=== PATIENT | female | born 1980 | race Caucasian/White ===

== ENCOUNTER 2016-10-08 07:53 | Outpatient (CLI) ==
[2013-08-03 20:06] VITALS: BMI 33.8
[2016-10-08 08:16] LABS: HEMATOCRIT 39.7 % (37.0-47.0); HEMOGLOBIN 12.9 g/dl (12.0-16.0); MEAN CORPUSCULAR HEMOGLOBIN 28.1 pg (27.0-31.0); MEAN CORPUSCULAR HGB CONC 32.5 (31.8-35.4); MEAN CORPUSCULAR VOLUME 86.5 fl (81.0-99.0); RED BLOOD COUNT 4.59 10^6/ul (4.20-5.40); WHITE BLOOD COUNT 9.77 K/ul (4.6-10.2)
[2016-10-08 08:55] LABS: ALBUMIN 3.6 g/dL (3.4-5.0); ALBUMIN/GLOBULIN RATIO 1.03; BILIRUBIN,TOTAL 0.38 mg/dL (0.00-1.20); BUN/CREATININE RATIO 10.95; CALCIUM 9.3 mg/dL (8.2-10.2); CHOL/HDL RATIO 3.9 (4.5-5.5); CREATININE 0.73 mg/dL (0.60-1.30); TOTAL PROTEIN 7.1 g/dL (6.4-8.2)
== END 2016-10-08 07:54 | disposition home or self-care (01) ==
LOC: LAB 07:53
PROVIDERS: ATTEND Family Medicine
DX: E11.9 Type 2 diabetes mellitus without complications (principal); E28.2 Polycystic ovarian syndrome; E78.5 Hyperlipidemia, unspecified; I10 Essential (primary) hypertension; Z09 Encounter for follow-up examination after completed treatment for conditions other than malignant neoplasm; Z13.9 Encounter for screening, unspecified; Z23 Encounter for immunization; Z68.31 Body mass index [BMI] 31.0-31.9, adult
CPT/HCPCS: 36415; 80053; 80061; 84443; 85027

== ENCOUNTER 2016-11-23 13:40 | Outpatient (CLI) | payer OTHER ==
[2013-08-03 20:06] VITALS: BMI 33.8
--- NOTE | 2016-11-25 08:19 | MAMMO ---
EXAM: Bilateral digital screening mammogram (2-D and 3-D) Comparison: Bilateral mammogram 11/27/2014 Findings: MLO and CC views of bilateral breasts demonstrate scattered fibroglandular breast parenchy ma. CAD was reviewed by the radiologist. Tomosynthesis was performed. Stable benign bilateral dwight st calcifications. There are no dominant masses, no suspicious microcalcifications and no architectu ral distortions Impression: Benign stable mammogram. Recommend followup routine screening mammography and 1 year. BIRADS 2
== END 2016-11-23 13:41 | disposition home or self-care (01) ==
LOC: RAD 13:40
PROVIDERS: ATTEND Obstetrics & Gynecology
DX: Z12.31 Encounter for screening mammogram for malignant neoplasm of breast (principal)
CPT/HCPCS: 77067

== ENCOUNTER 2017-08-06 08:25 | Outpatient (CLI) ==
[2013-08-03 20:06] VITALS: BMI 33.8
== END 2017-08-06 08:26 | disposition home or self-care (01) ==
LOC: LAB 08:25
PROVIDERS: ATTEND Family Medicine
DX: R01.1 Cardiac murmur, unspecified (principal); I10 Essential (primary) hypertension; R50.81 Fever presenting with conditions classified elsewhere; E78.5 Hyperlipidemia, unspecified; M79.1 Myalgia; E28.2 Polycystic ovarian syndrome; G93.3 Postviral and related fatigue syndromes; E78.00 Pure hypercholesterolemia, unspecified; E11.9 Type 2 diabetes mellitus without complications
CPT/HCPCS: 36415; 80053; 80061; 84443; 85025

== ENCOUNTER 2017-12-02 09:44 | Outpatient (CLI) | payer OTHER ==
[2013-08-03 20:06] VITALS: BMI 33.8
--- NOTE | 2017-12-03 10:16 | MAMMO ---
EXAM: Bilateral digital screening mammogram (2-D and 3-D) History: Screening Comparison: Bilateral mammogram 11/23/2016 Findings: MLO and CC views of bilateral breasts demonstrate scattered fibroglandular breast parenchy ma. CAD was reviewed by the radiologist. Tomosynthesis was performed. There are no dominant masses , no suspicious microcalcifications and no architectural distortions. Stable benign bilateral breast calcifications. Impression: Benign stable mammogram. Recommend followup routine screening mammography in 1 year. BIRADS 2
== END 2017-12-02 09:45 | disposition home or self-care (01) ==
LOC: RAD 09:44
PROVIDERS: ATTEND Nurse Practitioner Women's Health
DX: Z12.31 Encounter for screening mammogram for malignant neoplasm of breast (principal)
CPT/HCPCS: 77067

== ENCOUNTER 2018-03-23 12:44 | Emergency (ER) | payer OTHER ==
[2018-03-23 12:44] VITALS: BMI 33.8
[2018-03-23 12:51] VITALS: BP 128/71; TEMP 98.5
--- NOTE | 2018-03-23 14:09 | DI ---
EXAM: Chest two views HISTORY: Cough COMPARISON: None TECHNIQUE: Two views of the chest were performed FINDINGS: The lungs are clear. There is no pleural effusion or pneumothorax. The heart is normal i n size. The mediastinal contour is normal. There are no acute abnormalities of the bones. IMPRESSION: No acute cardiopulmonary process.
--- NOTE | 2018-03-23 14:11 | ED.PDOC ---
General ED Provider: Dr. JOSE PUTNAM Chief Complaint: Dizziness Stated Complaint: dizziness sudden today which is better if pt closes her eyes no pain or discomfort no focal or diffuse neurological signs Time Seen by Physician: 12:45 Mode of Arrival: Walk-In Information Source: Patient Exam Limitations: No limitations Primary Care Provider: CASPER NEAL Nursing and Triage Documentation Reviewed and Agree: Yes Does patient meet sepsis criteria?: No If yes, has appropriate treatment been initiated?: No System Inflammatory Response Syndrome: Not Applicable Sepsis Protocol: For patient's 13 years and over: Temp is 96.8 and below OR 101 and greater Pulse >90 BPM Resp >20/minute Acutely Altered Mental Status Are patient's symptoms suggestive of a new infection, such as: -Pneumonia -Skin, Soft Tissue -Endocarditis -UTI -Bone, Joint Infection -Implantable Device -Acute Abdominal Infection -Wound Infection -Meningitis -Blood Stream Catheter Infection -Unknown Neurological Complaint Exam - Dizziness Complaint/Exam Last Known Well: today Onset: Sudden Duration: today Symptoms Are: Still present Timing: Intermittent Episodes Lasting: Minutes Initial Severity: Mild Current Severity: Mild Character: Reports: Lightheaded, Weak, Dizzy Aggravating: Reports: None Alleviating: Reports: Closing eyes Associated Signs and Symptoms: Reports: Nausea. Denies: Vomiting, Diaphoresis, Tinnitus, Chest pain, Short of air, Palpitations, Unsteady gait, GI blood loss, Visual changes, Decreased oral intake, Change in medication, Change in diet, OTC meds, Loss of balance Cardiac Risk Factors: Reports: Hypertension, Diabetes (on metformin) CVA Risk Factors: Reports: Hypertension Related Surgical History: Reports: None JVD Present: No Carotid Bruit Present: No Nystagmus Present: No Gag Reflex Present: Yes Meningeal Signs Positive: No Focal Weakness: Present: None Focal Sensory Loss: Present: None Gait: Normal Romberg Test Positive: No Babinski Sign: Negative Right, Negative Left Heel to Toe Normal: Yes Differential Diagnoses: Dysrhythmia, Hypovolemia, Metabolic abnormalities, Vasovagal reaction (viral syndrome ) Quality Indicators for Cardiac Chest Pain: EKG in 10min. Quality Indicators for AMI: EKG in 10min. Quality Indicator For Non-Traumatic Chest Pain/Syncope: EKG Performed Review of Systems - Review Of Systems Constitutional: Reports: Malaise Eyes: Reports: No symptoms Ears, Nose, Mouth, Throat: Reports: No symptoms Respiratory: Reports: No symptoms Cardiac: Reports: No symptoms GI: Reports: No symptoms : Reports: No symptoms Musculoskeletal: Reports: No symptoms Skin: Reports: No symptoms Neurological: Reports: Other (dizzy) Endocrine: Reports: No symptoms Hematologic/Lymphatic: Reports: No symptoms All Other Systems: Reviewed and Negative Past Medical History - Past Medical History Previously Healthy: Yes Endocrine: Reports: DM 2 Cardiovascular: Reports: Hypertension Respiratory: Reports: None Hematological: Reports: None Gastrointestinal: Reports: None Genitourinary: Reports: None Neuro/Psych: Reports: None Musculoskeletal: Reports: None Cancer: Reports: None Last Menstrual Period: 2 weeks ago - Surgical History General Surgical History: Reports: None - Family History Family History: Reports: None - Social History Smoking Status: Never smoker Hx Substance Use: No Alcohol Screening: None Physical Exam - Physical Exam Appearance: Well-appearing, No pain distress, Well-nourished Eyes: HILLARY, EOMI, Conjunctiva clear ENT: Ears normal, Nose normal, Oropharynx normal Respiratory: Airway patent, Breath sounds clear, Breath sounds equal, Respirations nonlabored Cardiovascular: RRR, Pulses normal, No rub, No murmur GI/: Soft, Nontender, No masses, Bowel sounds normal, No Organomegaly Musculoskeletal: Normal strength, ROM intact, No edema, No calf tenderness Skin: Warm, Dry, Normal color Neurological: Sensation intact, Motor intact, Reflexes intact, Cranial nerves intact, Alert, Oriented Psychiatric: Affect appropriate, Mood appropriate - NIH Stroke Scale 1a. Level of Consciousness: 0=Alert and keenly responsive 1b. Level of Consciousness Questions: 0=Answers correctly to two questions 1c. Level of Consciousness Commands: 0=Performs two tasks correctly 2. Best Gaze: 0=Normal 3. Visual: 0=No visual loss 4. Facial Palsy: 0=Normal 5a. Motor Left Arm: 0=No drift,arm holds 90 degrees for 10 sec., leg 30 degrees for 5 sec. 5b. Motor Right Arm: 0=No drift,arm holds 90 degrees for 10 sec., leg 30 degrees for 5 sec. 6a. Motor Left Le=No drift,arm holds 90 degrees for 10 sec., leg 30 degrees for 5 sec. 6b. Motor Right Le=No drift,arm holds 90 degrees for 10 sec., leg 30 degrees for 5 sec. 7. Limb Ataxia: 0=Absent 8. Sensory: 0=Normal 9. Best Language: 0=No aphasia 10. Dysarthria: 0=Normal 11. Extincion and Inattention: 0=Normal Stroke Scale Total: 0 Re-Evaluation - Re-Evaluation Time of Re-Evaluation: 14:12 Status: Improved Vital Signs Stable: Yes Pain Level: 0 Appearance: NAD Lungs: Clear Skin: Warm and Dry Neuro: Alert and Oriented X3 CV: RRR - Re-Evaluation Time of Re-Evaluation: 14:48 Status: Improved Vital Signs Stable: Yes Pain Level: 0 Appearance: NAD Skin: Warm and Dry Neuro: Alert and Oriented X3 CV: RRR Critical Care Note - Critical Care Note Total Time (mins): 0 Course - Course Hematology/Chemistry: 03/23/18 13:10 03/23/18 13:10 Orders, Labs, Meds: Lab Review 03/23/18 03/23/18 03/23/18 12:55 13:10 13:10 WBC 16.76 H RBC 5.09 Hgb 15.0 Hct 45.9 MCV 90.2 MCH 29.5 MCHC 32.7 RDW Coeff of Rut 12.6 Plt Count 418 Immature Gran % (Auto) 0.5 Neut % (Auto) 89.7 Lymph % (Auto) 5.3 L [place] % (Auto) 3.3 Eos % (Auto) 0.9 Baso % (Auto) 0.3 Immature Gran # (Auto) 0.1 Neut # (Auto) 15.0 H Lymph # (Auto) 0.9 [place] # (Auto) 0.6 Eos # (Auto) 0.2 Baso # (Auto) 0.1 Sodium 137.6 Potassium 4.43 Chloride 102.7 Carbon Dioxide 22.4 Anion Gap 16.93 BUN 12.4 Creatinine 0.56 L Estimated GFR (MDRD) 121.00 BUN/Creatinine Ratio 22.14 Glucose 160.5 H Lactic Acid Calcium 9.24 Total Bilirubin 0.68 AST 26.9 ALT 28.5 Alkaline Phosphatase 75.7 Total Protein 8.30 H Albumin 4.65 Globulin 3.65 Albumin/Globulin Ratio 1.27 Procalcitonin Urine Color Urine Clarity Urine pH Ur Specific Elizabeth Urine Protein Urine Glucose (UA) Urine Ketones Urine Blood Urine Nitrite Urine Bilirubin Urine Urobilinogen Ur Leukocyte Esterase Urine Microscopic RBC Urine Microscopic WBC Ur Squamous Epith Cells Amorphous Sediment Urine Bacteria Urine Mucus Influ A Molecular Assay Negative by naat Influ B Molecular Assay Negative by naat 03/23/18 03/23/18 03/23/18 13:10 13:10 13:45 WBC RBC Hgb Hct MCV MCH MCHC RDW Coeff of Rut Plt Count Immature Gran % (Auto) Neut % (Auto) Lymph % (Auto) [place] % (Auto) Eos % (Auto) Baso % (Auto) Immature Gran # (Auto) Neut # (Auto) Lymph # (Auto) [place] # (Auto) Eos # (Auto) Baso # (Auto) Sodium Potassium Chloride Carbon Dioxide Anion Gap BUN Creatinine Estimated GFR (MDRD) BUN/Creatinine Ratio Glucose Lactic Acid 1.32 Calcium Total Bilirubin AST ALT Alkaline Phosphatase Total Protein Albumin Globulin Albumin/Globulin Ratio Procalcitonin < 0.05 Urine Color Yellow Urine Clarity Slightly Urine pH 5.0 Ur Specific Elizabeth 1.025 Urine Protein Negative Urine Glucose (UA) Negative Urine Ketones Negative Urine Blood Negative Urine Nitrite Negative Urine Bilirubin Negative Urine Urobilinogen 0.2 Ur Leukocyte Esterase Negative Urine Microscopic RBC 2-5 Urine Microscopic WBC 0-2 Ur Squamous Epith Cells 5-10 Amorphous Sediment Trace Urine Bacteria Trace Urine Mucus Trace Influ A Molecular Assay Influ B Molecular Assay Orders Category Date Time Status EKG-(ED ONLY) Stat CARDIO 03/23/18 12:55 Completed BLOOD CULTURE (ED ONLY) Stat LAB 03/23/18 13:10 Received CBC W/ AUTO DIFF Stat LAB 03/23/18 13:10 Completed COMPREHENSIVE METABOLIC PANEL Stat LAB 03/23/18 13:10 Completed FLU A/B MOLECULAR Stat LAB 03/23/18 12:55 Completed LACTIC ACID Stat LAB 03/23/18 13:10 Completed MOLECULAR GROUP A STREP Stat LAB 03/23/18 12:55 Completed PROCALCITONIN Stat LAB 03/23/18 13:10 Completed URINALYSIS C & S IF INDICATED Stat LAB 03/23/18 13:45 Completed CHEST, 2 VIEWS PA & LAT Stat RADS 03/23/18 13:41 Completed Vital Signs: Temp Pulse Resp BP Pulse Ox 03/23/18 12:45 98.5 F 110 H 20 128/71 100 Departure - Departure Time of Disposition: 14:48 (recheck neuro WNL PRIOR TO D/C) Disposition: HOME SELF-CARE Discharge Problem: Dizziness Instructions: Lightheadedness (ED), Dizziness (ED) Condition: Good Pt referred to PMD for follow-up: Yes IPMP verified?: No Additional Instructions: Please call your Family Physician as soon as possible to schedule a follow-up appointment.if dizziness is noted with any item below return at once . headache, vomiting, vision related issues , arm weakness, leg weakness , unable to speak or facial drooping any permutation there of must come to ED [facility] Allergies/Adverse Reactions: Allergies No Known Allergies Allergy (Verified 03/23/18 12:54) Home Medications: Ambulatory Orders Bupropion HCl [Wellbutrin] 300 mg PO QAM 08/03/13 Metformin HCl [Glucophage] 500 mg PO QAM 08/03/13 Nebivolol HCl [Bystolic] 10 mg PO d 02/26/17 Disposition Discussed With: Patient
== END 2018-03-23 15:05 | disposition home or self-care (01) ==
LOC: ED 12:44
DX: R42 Dizziness and giddiness (principal); R53.1 Weakness; R11.0 Nausea; I10 Essential (primary) hypertension; E11.9 Type 2 diabetes mellitus without complications
CPT/HCPCS: 36415; 80053; 81001; 83605; 84145; 85025; 87040; 87502; 87651; 93005; 93010; 96360; 99283

== ENCOUNTER 2018-06-16 07:35 | Outpatient (CLI) | END 2018-06-16 07:36 | disposition home or self-care (01) | LOC: LAB 07:35 | PROVIDERS: ATTEND Family Medicine | DX: E78.00 Pure hypercholesterolemia, unspecified (principal); E11.9 Type 2 diabetes mellitus without complications; I10 Essential (primary) hypertension | CPT/HCPCS: 36415; 80053; 80061; 83036 ==

== ENCOUNTER 2018-10-14 07:46 | Outpatient (CLI) | END 2018-10-14 07:47 | disposition home or self-care (01) | LOC: LAB 07:46 | PROVIDERS: ATTEND Family Medicine | DX: E11.65 Type 2 diabetes mellitus with hyperglycemia (principal); E78.00 Pure hypercholesterolemia, unspecified; E78.5 Hyperlipidemia, unspecified; I10 Essential (primary) hypertension | CPT/HCPCS: 36415; 80053; 83036 ==